=== PATIENT | female | born 1955 | race Caucasian/White ===

== ENCOUNTER 2019-10-20 19:13 | Emergency (ER) | payer OTHER ==
[~2019-10-20] VITALS: Ht 152.4 cm; Wt 104.3 kg
[~2019-10-20 19:13] MED LIST: ATOR20TA PO; OLME20TA13 PO
[2019-10-20 19:42] VITALS: BP 159/98
== END 2019-10-20 20:08 | disposition home or self-care (01) ==
LOC: ER 19:13
DX: S60.861A Insect bite (nonvenomous) of right wrist, initial encounter (principal); L03.113 Cellulitis of right upper limb; I10 Essential (primary) hypertension; K21.9 Gastro-esophageal reflux disease without esophagitis; Z88.1 Allergy status to other antibiotic agents; Z79.899 Other long term (current) drug therapy; W57.XXXA Bitten or stung by nonvenomous insect and other nonvenomous arthropods, initial encounter; Y93.89 Activity, other specified; Y92.89 Other specified places as the place of occurrence of the external cause; Y99.8 Other external cause status